=== PATIENT | female | born 1960 | race Caucasian/White ===

== ENCOUNTER 2016-08-08 18:56 | Emergency (ER) | payer OTHER, MEDICAID ==
[~2016-08-08] VITALS: Ht 142.2 cm; Wt 81.6 kg
[2016-08-08 18:56] VITALS: BP 160/98; PULSE 111; RESP 19; TEMP 97.6; O2SAT 96
[~2016-08-08 18:56] MED LIST: GLIP10TA74 PO; METF1000 PO; SIMV40TA5 PO; SSREG SQ
[2016-08-08 20:55] VITALS: BP 160/98; PULSE 90; RESP 19; TEMP 97.6; O2SAT 96
== END 2016-08-08 20:55 | disposition home or self-care (01) ==
LOC: SED 18:56
DX: M25.561 Pain in right knee (principal); E11.9 Type 2 diabetes mellitus without complications; I10 Essential (primary) hypertension; E78.00 Pure hypercholesterolemia, unspecified; Z79.4 Long term (current) use of insulin
CPT/HCPCS: 73564; 99284

== ENCOUNTER 2016-09-01 11:17 | Emergency (ER) | payer OTHER, MEDICAID ==
[~2016-09-01] VITALS: Ht 142.2 cm; Wt 78.0 kg
[2016-09-01 11:17] VITALS: BP 131/72; PULSE 86; RESP 16; TEMP 97.2; O2SAT 96
[2016-09-01 13:00] VITALS: BP 128/71; PULSE 79; RESP 16; TEMP 98.1; O2SAT 96
== END 2016-09-01 13:00 | disposition home or self-care (01) ==
LOC: SED 11:17
DX: S20.222A Contusion of left back wall of thorax, initial encounter (principal); E11.9 Type 2 diabetes mellitus without complications; I10 Essential (primary) hypertension; E78.00 Pure hypercholesterolemia, unspecified; W01.0XXA Fall on same level from slipping, tripping and stumbling without subsequent striking against object, initial encounter; Y93.89 Activity, other specified; Y92.89 Other specified places as the place of occurrence of the external cause; Y99.8 Other external cause status
CPT/HCPCS: 71250-TC; 99284

== ENCOUNTER 2017-03-19 16:13 | Emergency (ER) | payer OTHER, MEDICAID ==
[~2017-03-19] VITALS: Ht 142.2 cm; Wt 79.4 kg
[2017-03-19 16:20] VITALS: BP_SYST 153
[2017-03-19 17:35] VITALS: BP_SYST 140
== END 2017-03-19 17:30 | disposition home or self-care (01) ==
LOC: SED 16:13
DX: N99.89 Other postprocedural complications and disorders of genitourinary system (principal); E11.9 Type 2 diabetes mellitus without complications; I10 Essential (primary) hypertension; E78.00 Pure hypercholesterolemia, unspecified; Z87.442 Personal history of urinary calculi
CPT/HCPCS: 99282

== ENCOUNTER 2018-01-25 23:05 | Emergency (ER) | payer OTHER, MEDICAID ==
[~2018-01-25] VITALS: Ht 144.8 cm; Wt 82.6 kg
[2018-01-25 23:20] VITALS: BP_SYST 181
[2018-01-26] MEDS ORDERED: NACL 0.9% 1,000 ML IV ONE (00:06)
[2018-01-26] MEDS ORDERED: KETOROLAC TROMETHAMINE 30 MG VIAL IVP ONE (00:15)
[2018-01-26 00:38] LABS: BASOPHILS % (AUTO) 0.3 % (0.0-2.0); EOSINOPHILS # (AUTO) 0.2 K/uL (0.0-0.4); EOSINOPHILS % (AUTO) 2.3 % (0.0-4.0); HEMATOCRIT 40.6 % (36-48); HEMOGLOBIN 13.8 g/dL (12.0-16.0); LYMPHOCYTES # (AUTO) 1.1 K/uL (1.0-5.5); LYMPHOCYTES % (AUTO) 14.4 % (20.5-51.5); MEAN CORPUSCULAR HEMOGLOBIN 31 pg (27-31); MEAN CORPUSCULAR HGB CONC 34 % (32-36); MEAN CORPUSCULAR VOLUME 92 fL (79.0-98.0); MONOCYTES # (AUTO) 0.6 K/uL (0.0-1.0); NEUTROPHILS # (AUTO) 5.6 K/uL (1.8-7.7); PLATELET COUNT (AUTO) 221 K/uL (130-430); RED BLOOD CELL COUNT(AUTO) 4.43 MIL/uL (4.2-6.2); RED CELL DISTRIBUTION WIDTH 12.5 % (9.0-15.0); WHITE BLOOD COUNT (AUTO) 7.5 K/uL (4.8-10.8)
[2018-01-26 01:08] LABS: CALCIUM 8.3 mg/dL (8.4-11.0); CREATININE 0.98 mg/dL (0.55-1.30); POTASSIUM 3.7 mmol/L (3.5-5.1)
[2018-01-26 01:12] LABS: ALBUMIN 3.5 g/dL (3.4-4.8); TOTAL BILIRUBIN 0.3 mg/dL (0.0-1.0)
[2018-01-26] MEDS ORDERED: MAG HYDROX/AL HYDROX/SIMETH 30 ML, BELLADONNA ALKALOIDS/PHENOBARB 10 ML, LIDOCAINE VISC... PO ONE ×3 (01:15)
[2018-01-26] MEDS ORDERED: ONDANSETRON HCL 4 MG/2 ML VIAL IVP ONE (01:15)
[2018-01-26] MEDS ORDERED: POLYETHYLENE GLYCOL 3350, 17 GM/ POWD.PACK PO SCH (02:00)
[2018-01-26] MEDS ORDERED: FAMOTIDINE PF 20 MG/2 ML VIAL IVP ONE (02:00)
[2018-01-26] MEDS ORDERED: METOCLOPRAMIDE HCL 10 MG/2 ML VIAL IVP ONE (02:00)
[2018-01-26] MEDS ORDERED: BISACODYL 5 MG TABLET.DR (DULCOLAX) PO ONE (02:15)
[2018-01-26] MEDS ORDERED: POLYETHYLENE GLYCOL 3350, 17 GM/ POWD.PACK ONE (02:21)
[2018-01-26 02:44] VITALS: BP_SYST 147
[2018-01-26 02:52] LABS: BILIRUBIN,URINE NEGATIVE (NEGATIVE); BLOOD, URINE NEGATIVE (NEGATIVE); CLARITY/URINE CLEAR (CLEAR); COLOR,URINE YELLOW (YELLOW); GLUCOSE,URINE 1+ (NEGATIVE); KETONES,URINE NEGATIVE (NEGATIVE); LEUKOCYTE ESTERASE ,URINE NEGATIVE (NEGATIVE); NITRITE, URINE NEGATIVE (NEGATIVE); PROTEIN URINE 1+ (NEGATIVE)
[2018-01-26 03:09] LABS: BACTERIA,URINE FEW /HPF (None Seen); RBC,URINE 0-3 /HPF (0-3); WBC,URINE 0-3 /HPF (0-3)
== END 2018-01-26 02:44 | disposition home or self-care (01) ==
LOC: SED 23:05
DX: K56.7 Ileus, unspecified (principal); K59.00 Constipation, unspecified; E11.9 Type 2 diabetes mellitus without complications; E78.00 Pure hypercholesterolemia, unspecified; I10 Essential (primary) hypertension; Z79.4 Long term (current) use of insulin; Z79.899 Other long term (current) drug therapy
CPT/HCPCS: 36415; 74176; 80053; 81000; 83690; 85025; 96361; 96374; 96375; 99285; J1885; J2001; J2405; J2765; J3490; J7030

== ENCOUNTER 2019-02-03 18:55 | Emergency (ER) | payer MEDICARE, MEDICAID ==
[~2019-02-03] VITALS: Ht 144.8 cm; Wt 81.6 kg
[~2019-02-03 18:55] MED LIST changes: +GLIP10TA3 PO; -GLIP10TA74 PO
[2019-02-03 19:52] VITALS: BP_SYST 159
[2019-02-03 21:19] LABS: BASOPHILS # (AUTO) 0.1 K/uL (0.0-0.2); EOSINOPHILS # (AUTO) 0.2 K/uL (0.0-0.4); HEMATOCRIT 41.6 % (36-48); HEMOGLOBIN 14.2 g/dL (12.0-16.0); LYMPHOCYTES # (AUTO) 1.6 K/uL (1.0-5.5); LYMPHOCYTES % (AUTO) 20.4 % (20.5-51.5); MEAN CORPUSCULAR HEMOGLOBIN 31 pg (27-31); MEAN CORPUSCULAR HGB CONC 34 % (32-36); MEAN CORPUSCULAR VOLUME 91 fL (79.0-98.0); MONOCYTES # (AUTO) 0.6 K/uL (0.0-1.0); NEUTROPHILS # (AUTO) 5.4 K/uL (1.8-7.7); NEUTROPHILS % (AUTO) 67.6 % (40.0-70.0); PLATELET COUNT (AUTO) 197 K/uL (130-430); RED BLOOD CELL COUNT(AUTO) 4.58 MIL/uL (4.2-6.2); RED CELL DISTRIBUTION WIDTH 13.7 % (9.0-15.0); WHITE BLOOD COUNT (AUTO) 7.9 K/uL (4.8-10.8)
[2019-02-03 21:24] LABS: BILIRUBIN,URINE NEGATIVE (NEGATIVE); BLOOD, URINE NEGATIVE (NEGATIVE); CLARITY/URINE CLEAR (CLEAR); COLOR,URINE YELLOW (YELLOW); GLUCOSE,URINE TRACE (NEGATIVE); KETONES,URINE NEGATIVE (NEGATIVE); LEUKOCYTE ESTERASE ,URINE NEGATIVE (NEGATIVE); NITRITE, URINE NEGATIVE (NEGATIVE); PROTEIN URINE NEGATIVE (NEGATIVE); UROBILINOGEN,URINE 0.2 (0.2-1.0)
[2019-02-03 21:25] LABS: CALCIUM 9.4 mg/dL (8.4-11.0); CREATININE 0.97 mg/dL (0.55-1.30)
[2019-02-03 21:30] LABS: ALBUMIN 3.4 g/dL (3.4-4.8); TOTAL BILIRUBIN 0.3 mg/dL (0.0-1.0)
[2019-02-03] MEDS ORDERED: NACL 0.9% 1,000 ML IV ONE (21:30)
[2019-02-03] MEDS ORDERED: IOHEXOL 100 ML IV ONE (21:43)
[2019-02-03 23:05] VITALS: BP_SYST 126
== END 2019-02-03 23:05 | disposition home or self-care (01) ==
LOC: SED 18:55
DX: N76.0 Acute vaginitis (principal); B37.3 Candidiasis of vulva and vagina; E11.65 Type 2 diabetes mellitus with hyperglycemia; I10 Essential (primary) hypertension; E78.00 Pure hypercholesterolemia, unspecified; Z79.899 Other long term (current) drug therapy
CPT/HCPCS: 36415; 74177; 80053; 81003; 85025; 87040; 87086; 96360; 99284; J7030; Q9967

== ENCOUNTER 2019-02-05 09:30 | Emergency (ER) | payer OTHER, MEDICAID ==
[~2019-02-05] VITALS: Ht 144.8 cm; Wt 81.6 kg
--- NOTE | 2019-02-05 09:30 | NUR ---
Placed pt in bed 5.
[2019-02-05 09:35] VITALS: BP_SYST 160
--- NOTE | 2019-02-05 09:40 | NUR ---
Epi 0.3mg SQ given per MD order.
--- NOTE | 2019-02-05 09:40 | NUR ---
Pt arrives to the ER with c/o of a rash over BLE and back. Rash is visible over the BLE and back. Pt is not c/o any pain. Reported that she had a CT scan with contrast and sice then she ahs been itiching over the affected areas. No other c/o.
--- NOTE | 2019-02-05 09:41 | NUR ---
ER Dr. Felix at bedside examining patient.
[2019-02-05] MEDS ORDERED: EPINEPHrine 1 MG/ML AMP SUBCUT ONE (09:45)
--- NOTE | 2019-02-05 10:20 | NUR ---
patient is sleeping in bed. Eyes are closed.
[2019-02-05 10:28] LABS: BASOPHILS % (AUTO) 0.2 % (0.0-2.0); EOSINOPHILS # (AUTO) 0.3 K/uL (0.0-0.4); EOSINOPHILS % (AUTO) 5.7 % (0.0-4.0); HEMATOCRIT 39.1 % (36-48); HEMOGLOBIN 13.6 g/dL (12.0-16.0); LYMPHOCYTES # (AUTO) 0.9 K/uL (1.0-5.5); LYMPHOCYTES % (AUTO) 16.1 % (20.5-51.5); MEAN CORPUSCULAR HEMOGLOBIN 32 pg (27-31); MEAN CORPUSCULAR HGB CONC 35 % (32-36); MEAN CORPUSCULAR VOLUME 90 fL (79.0-98.0); MONOCYTES # (AUTO) 0.4 K/uL (0.0-1.0); MONOCYTES % (AUTO) 6.9 % (1.7-9.3); NEUTROPHILS # (AUTO) 4.1 K/uL (1.8-7.7); NEUTROPHILS % (AUTO) 71.1 % (40.0-70.0); PLATELET COUNT (AUTO) 167 K/uL (130-430); RED BLOOD CELL COUNT(AUTO) 4.32 MIL/uL (4.2-6.2); RED CELL DISTRIBUTION WIDTH 13.6 % (9.0-15.0); WHITE BLOOD COUNT (AUTO) 5.8 K/uL (4.8-10.8)
[2019-02-05 10:35] LABS: CALCIUM 8.7 mg/dL (8.4-11.0); CREATININE 0.76 mg/dL (0.55-1.30); POTASSIUM 3.8 mmol/L (3.5-5.1)
[2019-02-05 10:40] LABS: ALBUMIN 3.2 g/dL (3.4-4.8); TOTAL BILIRUBIN 0.6 mg/dL (0.0-1.0)
[2019-02-05 10:43] LABS: INR 0.9 (0.8-1.2); PROTHROMBIN TIME 9.4 SECS (9.5-12.5)
[2019-02-05 12:59] VITALS: BP_SYST 154
--- NOTE | 2019-02-05 13:05 | NUR ---
Patient given written and verbal discharge instructions and verbalizes understanding. ER MD discussed with patient the results and treatment provided. Patient in stable condition. ID arm band removed. Rx of Prednisone and Benadryl given. Patient educated on pain management and to follow up with PMD. Pain Scale 0/10 .Opportunity for questions provided and answered. Medication side effect fact sheet provided.
== END 2019-02-05 12:57 | disposition home or self-care (01) ==
LOC: SED 09:30
DX: T78.40XA Allergy, unspecified, initial encounter (principal); E11.9 Type 2 diabetes mellitus without complications; I10 Essential (primary) hypertension; E78.00 Pure hypercholesterolemia, unspecified; Y92.89 Other specified places as the place of occurrence of the external cause
CPT/HCPCS: 36415; 80053; 85025; 85610; 85730; 96372; 99283; J0171

== ENCOUNTER 2019-06-30 18:15 | Emergency (ER) | payer OTHER, MEDICAID ==
[~2019-06-30] VITALS: Ht 144.8 cm; Wt 80.7 kg
[2019-06-30 18:53] VITALS: BP_SYST 149
--- NOTE | 2019-06-30 18:57 | NUR ---
TPatient triaged and placed in waiting room. VSS and patient appears in no acute distress at this time. Accompanied by SELF, awaiting available bed, and MD notified of need for MSE.
--- NOTE | 2019-06-30 20:26 | NUR ---
Patient to ER bed H1 for evaluation. Side rails up. Report given to Juanpablo GILLESPIE.
--- NOTE | 2019-06-30 20:38 | NUR ---
Patient complains of right hand pain, mainly to 3rd and 4th digit. Pt states that she noticed it hurting in the last week, noted superificial lacerations to both digits with dried skin. NO other injuries/complaints per patient or noted.
--- NOTE | 2019-06-30 21:10 | NUR ---
ER Dr. Downs at bedside examining patient.
[2019-06-30] MEDS ORDERED: TRIAMCINOLONE ACETONIDE 40 MG/ML IM ONE (21:30)
[2019-06-30 21:51] VITALS: BP_SYST 136
--- NOTE | 2019-06-30 21:51 | NUR ---
Patient given written and verbal discharge instructions and verbalizes understanding. ER MD discussed with patient the results and treatment provided. Patient in stable condition. ID arm band removed. Rx of Prednisone and Benadryl given. Patient educated on pain management and to follow up with PMD. Pain Scale 0. Opportunity for questions provided and answered. Medication side effect fact sheet provided.
== END 2019-06-30 21:51 | disposition home or self-care (01) ==
LOC: SED 18:15
DX: L30.9 Dermatitis, unspecified (principal); E11.9 Type 2 diabetes mellitus without complications; I10 Essential (primary) hypertension; E78.00 Pure hypercholesterolemia, unspecified
CPT/HCPCS: 96372; 99283; J3301

== ENCOUNTER 2019-09-09 17:41 | Emergency (ER) | payer OTHER, MEDICAID ==
[~2019-09-09] VITALS: Ht 144.8 cm; Wt 77.1 kg
--- NOTE | 2019-09-09 17:50 | NUR ---
PATIENT TO ER #3
[2019-09-09 17:53] VITALS: BP_SYST 119
[2019-09-09] MEDS ORDERED: ATOR20TA64 PO (17:53)
[2019-09-09] MEDS ORDERED: LISI-652 PO (17:53)
--- NOTE | 2019-09-09 17:55 | NUR ---
ROB Cadet at bedside examining patient.
[2019-09-09] MEDS ORDERED: IBUPROFEN 600 MG TABLET PO ONE (18:00)
[2019-09-09] MEDS ORDERED: CYCLOBENZAPRINE HCL 10 MG TABLET (FLEXERIL) PO ONE (18:00)
--- NOTE | 2019-09-09 18:00 | NUR ---
PT CAME TO ER FOR BACK PAIN 8 RADIATING TO R LEG AND KNEE. RESTING IN [facility]
[2019-09-09 19:20] VITALS: BP_SYST 119
--- NOTE | 2019-09-09 19:20 | NUR ---
Patient given written and verbal discharge instructions and verbalizes understanding. ER MD discussed with patient the results and treatment provided. Patient in stable condition. ID arm band removed. Rx of FLEXERIL AND IBUPROFEN given. Patient educated on pain management and to follow up with PMD. Pain Scale 2. Opportunity for questions provided and answered. Medication side effect fact sheet provided.
== END 2019-09-09 19:20 | disposition home or self-care (01) ==
LOC: SED 17:41
DX: M47.816 Spondylosis without myelopathy or radiculopathy, lumbar region (principal); M54.5 Low back pain; E11.9 Type 2 diabetes mellitus without complications; I10 Essential (primary) hypertension; E78.00 Pure hypercholesterolemia, unspecified; Z79.899 Other long term (current) drug therapy
CPT/HCPCS: 72100-TC; 99283

== ENCOUNTER 2020-11-10 13:56 | Emergency (ER) | payer OTHER, MEDICAID ==
[~2020-11-10] VITALS: Ht 149.9 cm; Wt 81.6 kg
[~2020-11-10 13:56] MED LIST changes: +ATOR20TA64 PO; -GLIP10TA3 PO; +LISI-652 PO; -SIMV40TA5 PO
[2020-11-10 14:03] VITALS: BP_SYST 127
[2020-11-10 15:07] LABS: BILIRUBIN,URINE NEGATIVE (NEGATIVE); BLOOD, URINE NEGATIVE (NEGATIVE); COLOR,URINE YELLOW (YELLOW); GLUCOSE,URINE 3+ (NEGATIVE); KETONES,URINE NEGATIVE (NEGATIVE); LEUKOCYTE ESTERASE ,URINE NEGATIVE (NEGATIVE); NITRITE, URINE NEGATIVE (NEGATIVE); PROTEIN URINE NEGATIVE (NEGATIVE); UROBILINOGEN,URINE 0.2 (0.2-1.0)
[2020-11-10 15:11] LABS: BASOPHILS % (AUTO) 0.5 % (0.0-2.0); EOSINOPHILS # (AUTO) 0.1 K/uL (0.0-0.4); EOSINOPHILS % (AUTO) 1.6 % (0.0-4.0); HEMATOCRIT 39.3 % (36-48); HEMOGLOBIN 14.1 g/dL (12.0-16.0); LYMPHOCYTES # (AUTO) 1.5 K/uL (1.0-5.5); LYMPHOCYTES % (AUTO) 16.3 % (20.5-51.5); MEAN CORPUSCULAR HEMOGLOBIN 33 pg (27-31); MEAN CORPUSCULAR HGB CONC 36 % (32-36); MEAN CORPUSCULAR VOLUME 92 fL (79.0-98.0); MONOCYTES # (AUTO) 0.6 K/uL (0.0-1.0); MONOCYTES % (AUTO) 6.8 % (1.7-9.3); NEUTROPHILS # (AUTO) 6.7 K/uL (1.8-7.7); NEUTROPHILS % (AUTO) 74.8 % (40.0-70.0); PLATELET COUNT (AUTO) 195 K/uL (130-430); RED BLOOD CELL COUNT(AUTO) 4.29 MIL/uL (4.2-6.2); RED CELL DISTRIBUTION WIDTH 13.2 % (9.0-15.0)
[2020-11-10 15:14] LABS: CLARITY/URINE HAZY (CLEAR)
[2020-11-10 15:16] LABS: BACTERIA,URINE FEW /HPF (None Seen); MUCUS,URINE None Seen /LPF (None Seen); RBC,URINE NONE SEEN /HPF (0-3); WBC,URINE 0-3 /HPF (0-3)
[2020-11-10 15:26] LABS: CALCIUM 9.4 mg/dL (8.4-11.0); CREATININE 0.78 mg/dL (0.55-1.30); POTASSIUM 3.9 mmol/L (3.5-5.1)
[2020-11-10 15:32] LABS: ALBUMIN 3.5 g/dL (3.4-4.8); TOTAL BILIRUBIN 0.6 mg/dL (0.0-1.0)
[2020-11-10] MEDS ORDERED: OMEP-455 PO (16:30)
[2020-11-10 17:12] VITALS: BP_SYST 127
== END 2020-11-10 17:00 | disposition home or self-care (01) ==
LOC: SED 13:56
DX: K29.70 Gastritis, unspecified, without bleeding (principal); I10 Essential (primary) hypertension; E11.9 Type 2 diabetes mellitus without complications; E78.00 Pure hypercholesterolemia, unspecified; Z79.899 Other long term (current) drug therapy
CPT/HCPCS: 36415; 76700-TC; 80053; 81000; 83690; 84484; 85025; 93005; 99285

== ENCOUNTER 2021-02-02 23:40 | Emergency (ER) | payer OTHER, MEDICAID ==
[~2021-02-02] VITALS: Ht 142.2 cm; Wt 82.6 kg
[~2021-02-02 23:40] MED LIST changes: +OMEP-455 PO
[2021-02-02 23:49] VITALS: BP_SYST 179
--- NOTE | 2021-02-02 23:49 | NUR ---
Patient to ER bed 6 to gown for evaluation. Side rails up. Report given to Tr GILLESPIE.
--- NOTE | 2021-02-03 00:23 | NUR ---
Patient BIB by family from home. C/O bilateral rash x 3 days. Patient reported, had bilateral rash and right leg bruise, swelling x 3 days. Hx DM, HLD, HTN. A/O,X4, right thigh bruise , swelling right leg, no numbness or tingling, denies pain this time.
[2021-02-03 00:26] LABS: BASOPHILS % (AUTO) 0.5 % (0.0-2.0); EOSINOPHILS # (AUTO) 0.3 K/uL (0.0-0.4); EOSINOPHILS % (AUTO) 3.9 % (0.0-4.0); HEMATOCRIT 34.1 % (36-48); HEMOGLOBIN 12.1 g/dL (12.0-16.0); LYMPHOCYTES # (AUTO) 1.5 K/uL (1.0-5.5); LYMPHOCYTES % (AUTO) 21.1 % (20.5-51.5); MEAN CORPUSCULAR HEMOGLOBIN 32 pg (27-31); MEAN CORPUSCULAR HGB CONC 36 % (32-36); MEAN CORPUSCULAR VOLUME 90 fL (79.0-98.0); MONOCYTES # (AUTO) 0.7 K/uL (0.0-1.0); MONOCYTES % (AUTO) 10.3 % (1.7-9.3); NEUTROPHILS # (AUTO) 4.6 K/uL (1.8-7.7); NEUTROPHILS % (AUTO) 64.2 % (40.0-70.0); PLATELET COUNT (AUTO) 187 K/uL (130-430); RED BLOOD CELL COUNT(AUTO) 3.79 MIL/uL (4.2-6.2); RED CELL DISTRIBUTION WIDTH 13.1 % (9.0-15.0); WHITE BLOOD COUNT (AUTO) 7.2 K/uL (4.8-10.8)
[2021-02-03 00:41] LABS: ALBUMIN 3.2 g/dL (3.4-4.8); CALCIUM 8.8 mg/dL (8.4-11.0); CREATININE 0.74 mg/dL (0.55-1.30); POTASSIUM 3.6 mmol/L (3.5-5.1); TOTAL BILIRUBIN 0.5 mg/dL (0.0-1.0)
--- NOTE | 2021-02-03 00:54 | NUR ---
Patient transported to ultrasound room via wheelchair, accompanied by orthopaedic technologist.
--- NOTE | 2021-02-03 01:06 | NUR ---
Patient came back from US Room.
--- NOTE | 2021-02-03 01:50 | NUR ---
Dr. Downs at bedside to explain results.
[2021-02-03] MEDS ORDERED: PRED20TA PO (02:23)
[2021-02-03] MEDS ORDERED: DIPH25CA83 PO (02:24)
[2021-02-03] MEDS ORDERED: CLOT24CR2 TP (02:25)
[2021-02-03 03:06] VITALS: BP_SYST 162
--- NOTE | 2021-02-03 03:06 | NUR ---
Patient given written and verbal discharge instructions and verbalizes understanding. ER MD discussed with patient the results and treatment provided. Patient in stable condition. ID arm band removed. Rx of Clotrimazole, Benadryl and Prednisone given. Patient educated on pain management and to follow up with PMD. Pain Scale 0/10. Opportunity for questions provided and answered. Medication side effect fact sheet provided.
== END 2021-02-03 03:06 | disposition home or self-care (01) ==
LOC: SED 23:40
DX: T78.40XA Allergy, unspecified, initial encounter (principal); M79.89 Other specified soft tissue disorders; I10 Essential (primary) hypertension; E11.9 Type 2 diabetes mellitus without complications; E78.00 Pure hypercholesterolemia, unspecified; Z79.899 Other long term (current) drug therapy; X58.XXXA Exposure to other specified factors, initial encounter
CPT/HCPCS: 36415; 80053; 83880; 85025; 85379; 93971; 99284

== ENCOUNTER 2021-05-18 13:41 | Emergency (ER) | payer OTHER, MEDICAID ==
[~2021-05-18] VITALS: Ht 142.2 cm; Wt 80.7 kg
[2021-05-18 13:41] VITALS: BP_SYST 121
[~2021-05-18 13:41] MED LIST changes: +CLOT24CR2 TP; +DIPH25CA83 PO; +PRED20TA PO
--- NOTE | 2021-05-18 13:50 | NUR ---
BROUGHT BACK TO BED #8, TRIAGED AND REPORT GIVEN TO JOSELITO
--- NOTE | 2021-05-18 14:00 | NUR ---
Pt came into ER with C/O low back pain and right thigh pain / X7days after a mechanical fall. No KO. Pt is AAOX4 speaking full sentences. Sitting up in gurney no distress noted at this time. Breathing is even and unlabored.
--- NOTE | 2021-05-18 14:16 | NUR ---
DR EASTMAN AT BEDSIDE FOR EVALUATION
[2021-05-18] MEDS ORDERED: LIDO1ADH77 TD (14:40)
[2021-05-18 14:54] VITALS: BP_SYST 121
--- NOTE | 2021-05-18 14:55 | NUR ---
Patient given written and verbal discharge instructions and verbalizes understanding. ER MD discussed with patient the results and treatment provided. Patient in stable condition. ID arm band removed. Rx of Lidocaine given. Patient educated on pain management and to follow up with PMD. Pain Scale 0. Opportunity for questions provided and answered. Medication side effect fact sheet provided.
== END 2021-05-18 14:55 | disposition home or self-care (01) ==
LOC: SED 13:41
DX: M54.50 Low back pain, unspecified (principal); M79.604 Pain in right leg; M54.2 Cervicalgia; I10 Essential (primary) hypertension; E11.9 Type 2 diabetes mellitus without complications; E78.00 Pure hypercholesterolemia, unspecified; Z79.899 Other long term (current) drug therapy; W18.39XA Other fall on same level, initial encounter; Y93.89 Activity, other specified; Y92.89 Other specified places as the place of occurrence of the external cause; Y99.8 Other external cause status
CPT/HCPCS: 99283

== ENCOUNTER 2021-08-26 14:47 | Emergency (ER) | payer OTHER, MEDICAID ==
[~2021-08-26] VITALS: Ht 142.2 cm; Wt 59.0 kg
[~2021-08-26 14:47] MED LIST changes: +LIDO1ADH77 TD
[2021-08-26 15:44] LABS: BASOPHILS % (AUTO) 0.3 % (0.0-2.0); EOSINOPHILS # (AUTO) 0.1 K/uL (0.0-0.4); EOSINOPHILS % (AUTO) 1.5 % (0.0-4.0); HEMATOCRIT 39.3 % (36-48); HEMOGLOBIN 13.5 g/dL (12.0-16.0); LYMPHOCYTES # (AUTO) 1.1 K/uL (1.0-5.5); LYMPHOCYTES % (AUTO) 15.1 % (20.5-51.5); MEAN CORPUSCULAR HEMOGLOBIN 31 pg (27-31); MEAN CORPUSCULAR HGB CONC 34 % (32-36); MEAN CORPUSCULAR VOLUME 91 fL (79.0-98.0); MONOCYTES # (AUTO) 0.7 K/uL (0.0-1.0); MONOCYTES % (AUTO) 9.6 % (1.7-9.3); NEUTROPHILS # (AUTO) 5.3 K/uL (1.8-7.7); NEUTROPHILS % (AUTO) 73.5 % (40.0-70.0); PLATELET COUNT (AUTO) 173 K/uL (130-430); RED BLOOD CELL COUNT(AUTO) 4.34 MIL/uL (4.2-6.2); WHITE BLOOD COUNT (AUTO) 7.3 K/uL (4.8-10.8)
[2021-08-26 15:52] LABS: CALCIUM 8.3 mg/dL (8.4-11.0); CREATININE 0.94 mg/dL (0.55-1.30); POTASSIUM 4.2 mmol/L (3.5-5.1)
[2021-08-26 15:58] LABS: ALBUMIN 3.2 g/dL (3.4-4.8); TOTAL BILIRUBIN 0.3 mg/dL (0.0-1.0)
--- NOTE | 2021-08-26 17:59 | NUR ---
Patient to TRIAGE to gown for evaluation. Side rails up.
--- NOTE | 2021-08-26 18:00 | NUR ---
ER at bedside examining patient.
[2021-08-26 18:36] VITALS: BP_SYST 125
[2021-08-26 19:00] VITALS: BP_SYST 125
--- NOTE | 2021-08-26 19:00 | NUR ---
Patient given written and verbal discharge instructions and verbalizes understanding. ER MD discussed with patient the results and treatment provided. Patient in stable condition. ID arm band removed. NO Rx of given. Patient educated on pain management and to follow up with PMD. Pain Scale 0. Opportunity for questions provided and answered. Medication side effect fact sheet provided.
== END 2021-08-26 19:00 | disposition home or self-care (01) ==
LOC: SED 14:47
DX: N39.498 Other specified urinary incontinence (principal); E11.9 Type 2 diabetes mellitus without complications; I10 Essential (primary) hypertension; E78.00 Pure hypercholesterolemia, unspecified
CPT/HCPCS: 36415; 72100-TC; 80053; 81002; 85025; 99284; 99285

== ENCOUNTER 2021-12-03 21:58 | Emergency (ER) | payer OTHER, MEDICAID ==
[~2021-12-03] VITALS: Ht 142.2 cm; Wt 73.9 kg
[2021-12-03 22:10] VITALS: BP_SYST 160
[2021-12-04 02:11] VITALS: BP_SYST 149
== END 2021-12-04 02:11 | disposition home or self-care (01) ==
LOC: SED 21:58
DX: S46.911A Strain of unspecified muscle, fascia and tendon at shoulder and upper arm level, right arm, initial encounter (principal); W10.9XXA Fall (on) (from) unspecified stairs and steps, initial encounter; Y93.89 Activity, other specified; Y92.89 Other specified places as the place of occurrence of the external cause; Y99.8 Other external cause status
CPT/HCPCS: 73030; 73060-TC; 99284

== ENCOUNTER 2021-12-19 17:30 | Emergency (ER) | payer OTHER, MEDICAID ==
[~2021-12-19] VITALS: Ht 142.2 cm; Wt 73.9 kg
[2021-12-19 18:19] VITALS: BP_SYST 137
--- NOTE | 2021-12-19 18:19 | NUR ---
Patient triaged and placed in ER waiting room awaiting available bed in main ED. MD aware of MSE needs.
--- NOTE | 2021-12-19 20:21 | NUR ---
Patient wheeled to bed 2 for evaluation and treatment
--- NOTE | 2021-12-19 20:42 | NUR ---
ROB Greco at bedside examining patient.
[2021-12-19] MEDS ORDERED: LIDO1ADH48 TD (20:56)
[2021-12-19 21:20] VITALS: BP_SYST 116
== END 2021-12-19 21:20 | disposition home or self-care (01) ==
LOC: SED 17:30
DX: S16.1XXA Strain of muscle, fascia and tendon at neck level, initial encounter (principal); S39.012A Strain of muscle, fascia and tendon of lower back, initial encounter; E11.9 Type 2 diabetes mellitus without complications; E78.00 Pure hypercholesterolemia, unspecified; I10 Essential (primary) hypertension; Z79.899 Other long term (current) drug therapy; W18.2XXA Fall in (into) shower or empty bathtub, initial encounter; Y93.89 Activity, other specified; Y92.89 Other specified places as the place of occurrence of the external cause; Y99.8 Other external cause status
CPT/HCPCS: 99282; 99283

== ENCOUNTER 2024-03-20 10:33 | Emergency (ER) | payer MEDICAID, OTHER ==
[~2024-03-20] VITALS: Ht 144.8 cm; Wt 68.5 kg
[~2024-03-20 10:33] MED LIST changes: +CLOT24CR TP; -CLOT24CR2 TP; +LIDO1ADH48 TD
[2024-03-20 10:50] VITALS: BP_SYST 159; PULSE 91; RESP 16; TEMP 97.8; O2SAT 100
[2024-03-20] MEDS: NACL 0.9% 1,000 ML IV ONE (11:54)
[2024-03-20 11:59] LABS: BASOPHILS % (AUTO) 0.6 % (0.0-2.0); EOSINOPHILS # (AUTO) 0.1 K/uL (0.0-0.4); HEMATOCRIT 40.2 % (36-48); HEMOGLOBIN 13.7 g/dL (12.0-16.0); LYMPHOCYTES # (AUTO) 1.6 K/uL (1.0-5.5); LYMPHOCYTES % (AUTO) 26.8 % (20.5-51.5); MEAN CORPUSCULAR HEMOGLOBIN 32 pg (27-31); MEAN CORPUSCULAR HGB CONC 34 % (32-36); MEAN CORPUSCULAR VOLUME 92 fL (79.0-98.0); MONOCYTES # (AUTO) 0.4 K/uL (0.0-1.0); MONOCYTES % (AUTO) 7.4 % (1.7-9.3); NEUTROPHILS # (AUTO) 3.7 K/uL (1.8-7.7); NEUTROPHILS % (AUTO) 63.2 % (40.0-70.0); PLATELET COUNT (AUTO) 233 K/uL (130-430); RED BLOOD CELL COUNT(AUTO) 4.35 MIL/uL (4.2-6.2); RED CELL DISTRIBUTION WIDTH 12.5 % (9.0-15.0); WHITE BLOOD COUNT (AUTO) 5.8 K/uL (4.8-10.8)
[2024-03-20 12:04] LABS: BILIRUBIN,URINE NEGATIVE (NEGATIVE); BLOOD, URINE NEGATIVE (NEGATIVE); CLARITY/URINE CLEAR (CLEAR); COLOR,URINE YELLOW (YELLOW); GLUCOSE,URINE 3+ (NEGATIVE); KETONES,URINE NEGATIVE (NEGATIVE); LEUKOCYTE ESTERASE ,URINE NEGATIVE (NEGATIVE); NITRITE, URINE NEGATIVE (NEGATIVE); PROTEIN URINE NEGATIVE (NEGATIVE); UROBILINOGEN,URINE 0.2 (0.2-1.0)
[2024-03-20 12:12] LABS: CALCIUM 9.6 mg/dL (8.4-11.0); CREATININE 1.09 mg/dL (0.55-1.30); POTASSIUM 4.6 mmol/L (3.5-5.1)
[2024-03-20 12:21] LABS: BACTERIA,URINE None Seen /HPF (None Seen); RBC,URINE NONE SEEN /HPF (0-3); WBC,URINE 0-3 /HPF (0-3)
[2024-03-20] MEDS ORDERED: MYCOLOG15 TP (13:12)
[2024-03-20 13:30] VITALS: BP_SYST 159; PULSE 91; RESP 16; TEMP 97.8; O2SAT 100
== END 2024-03-20 13:30 | disposition home or self-care (01) ==
LOC: SED 10:33
DX: B37.31 Acute candidiasis of vulva and vagina (principal); E11.65 Type 2 diabetes mellitus with hyperglycemia; R30.0 Dysuria; I10 Essential (primary) hypertension; Z79.899 Other long term (current) drug therapy; Z79.2 Long term (current) use of antibiotics
CPT/HCPCS: 99284; 96360; 80048; 81001; 85025; 36415; 82948; J7030; 81000; 81015